=== PATIENT | female | born 1945 | race Caucasian/White ===

== ENCOUNTER 2016-06-14 07:17 | Observation (INO) ==
--- NOTE | 2016-06-14 07:41 | Emergency Department Note ---
Disposition Clinical Impression: Chest pain, Bronchitis Disposition: Admitted As Inpatient Condition: Fair Referrals: Carrie Cole, [employer] [Primary Care Provider] - Forms: ED Satisfaction Letter Time of Disposition: 08:52 (seth joel) Chest Pain HPI - General Chief Complaint: ED Chest Pain Stated Complaint: chest pain Time Seen by Provider: 06/14/16 07:30 Source: patient, EMS Mode of arrival: EMS Limitations: no limitations Vital Signs Reviewed: Yes Nursing Notes Reviewed: Yes - History of Present Illness HPI Narrative: Comes in complaining of midsternal chest pain which has also been having cough congestion with phlegm production over the past couple weeks denies any diarrhea melena hematochezia or hematemesis any numbness tinnitus recently pain or weight loss or any rash or lesions Pt complaint: chest pain Onset (ago): day(s) (5) Duration: intermittent Onset: during rest Pain Location: substernal, left chest Severity: moderate Severity scale (1-10): 5 Quality: aching Improves with: nothing Worsens with: exertion, inspiration, movement Context: recent illness Associated symptoms: Reports: dyspnea, cough. Denies: nausea, vomiting, diaphoresis, sense of impending doom, syncope, palpitations, fever, leg swelling Treatments prior to arrival chest pain: aspirin - Related Data Home Medications Medication Instructions Recorded Confirmed Albuterol Sulfate [Albuterol 180 mcg IH Q4HR PRN 06/22/15 06/14/16 Inhaler] Ascorbate Calcium [Vitamin C] 500 mg PO DAILY 06/22/15 06/14/16 Atenolol [Tenormin] 25 mg PO BID 06/22/15 06/14/16 Beclomethasone Diprop 80mcg [QVAR 80 mcg PO BID PRN 06/22/15 06/14/16 80 mcg] Calcium Carbonate/Vitamin D3 1 each PO DAILY 06/22/15 06/14/16 [Calcium 600 + Vit D Tablet] Cyclosporine [Restasis] 1 each OP HS 06/22/15 06/14/16 Ergocalciferol (VITAMIN D2) 50,000 unit PO WE 06/22/15 06/14/16 [Vitamin D2 (50,000 UNIT)] Fluticasone Propionate Nasal 50 mcg NS DAILY PRN 06/22/15 06/14/16 [Flonase] Furosemide [Lasix] 40 mg PO DAILY PRN 06/22/15 06/14/16 Hydrochlorothiazide 12.5 mg PO DAILY 06/22/15 06/14/16 Lysine HCl [l-Lysine] 500 mg PO DAILY 06/22/15 06/14/16 Montelukast [Singulair] 10 mg PO HS 06/22/15 06/14/16 Multivitamin [Multi-Day Vitamins] 1 each PO DAILY 06/22/15 06/14/16 [place]-3S/Dha/Epa/Fish Oil [Fish 1,000 mg PO DAILY 06/22/15 06/14/16 Oil 1,200 mg Softgel] Oxygen 2 l NS AD 06/22/15 06/14/16 Ropinirole [Requip] 1 mg PO HS 06/22/15 06/14/16 Simvastatin [Zocor] 20 mg PO HS 06/22/15 06/14/16 Vitamin E Acid Succinate [Vitamin 400 unit PO DAILY 06/22/15 06/14/16 E] Aspirin 81 mg PO DAILY 01/18/16 06/14/16 Duloxetine HCl [Cymbalta] 90 mg PO DAILY 01/18/16 06/14/16 Glimepiride [Amaryl] 2 mg PO 0800 01/18/16 06/14/16 Pregabalin [Lyrica] 75 mg PO TID 01/18/16 06/14/16 Tiotropium [place] [Spiriva 2 puff IH BID 01/18/16 06/14/16 Respimat] Omeprazole [PriLOSEC] 40 mg PO DAILY 06/14/16 06/14/16 Potassium Chloride [Klor-Con 10] 10 meq PO DAILY 06/14/16 06/14/16 Allergies Allergy/AdvReac Type Severity Reaction Status Date / Time gabapentin [From Neurontin] Allergy SWELLING Verified 06/22/15 11:21 naproxen [From Naprosyn] Allergy Hives Verified 06/22/15 11:21 NSAIDS (Non-Steroidal Allergy Hives Verified 01/24/15 13:43 Anti-Inflamma All systems ED: reviewed and negative except as stated. Constitutional: Denies: fever, chills, weakness Eyes: Denies: eye pain ENT ED: Reports: congestion. Denies: ear pain Cardiovascular: Reports: chest pain, dyspnea on exertion. Denies: palpitations Respiratory: Reports: cough, dyspnea, sputum production. Denies: wheezes Gastrointestinal: Denies: abdominal pain, nausea Genitourinary: Denies: urgency, dysuria Musculoskeletal: Denies: back pain Integumentary: Denies: rash Neurological: Denies: headache Psychiatric: Denies: anxiety Endocrine: Denies: fatigue Hematological/Lymphatic: Denies: easy bleeding Allergic/Immunologic: Denies: facial swelling Chest Pain PMH - Past Medical History Medical history: Reports: arthritis, COPD, diabetes, GERD, hyperlipidemia, hypertension, myocardial infarction Surgical history: Reports: angioplasty/stent, appendectomy, breast surgery, hysterectomy, CHALINO/BSO Psychiatric history: Reports: depression 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 - Social History Smoking Status: Former smoker Alcohol use: Reports: none Drug use: Reports: none Physical Exam - General Limitations: no limitations General appearance: alert, in no apparent distress, anxious - Head Head exam: atraumatic, normocephalic, normal inspection - Eye Eye exam: Present: normal appearance, PERRL, EOMI - ENT ENT exam: normal exam, normal oropharynx, mucous membranes moist, TM's normal bilaterally, normal external ear exam - Neck Neck exam: Present: normal inspection, full ROM, trachea midline - Chest Chest inspection: Present: normal inspection, symmetric chest wall rise - Respiratory Respiratory exam: Present: normal lung sounds bilaterally - Cardiovascular Cardiovascular exam: Present: regular rate, normal rhythm, normal heart sounds - Abdominal Exam Abdominal exam: Present: soft, Non-Tender, normal bowel sounds - Expanded Upper Extremity Exam Shoulder exam: Present: normal inspection, full ROM Arm exam: Present: normal inspection, full ROM Elbow exam: Present: normal inspection, full ROM Forearm/Wrist exam: Present: normal inspection, full ROM Hand exam: Present: normal inspection, full ROM Vascular exam: Normal: capillary refill, radial pulse - Expanded Lower Extremity Exam Hip/Pelvis exam: Present: normal inspection, full ROM Upper leg exam: Present: normal inspection, full ROM Knee exam: Present: normal inspection, full ROM Lower leg exam: Present: normal inspection, full ROM Ankle exam: Present: normal inspection, full ROM Foot/toe exam: Present: normal inspection, full ROM Neurovascular/Tendon exam: Present: normal capillary refill, normal fine/light touch. Absent: motor deficit, sensory deficit, tendon deficit Gait: observed and normal - Back Exam Back exam: Present: normal inspection, full ROM - Neurological Exam Neurological exam: Present: alert, oriented X3, CN II-XII intact - Psychiatric Psychiatric exam: Present: normal affect, normal mood - Skin Skin exam: Present: warm, dry, intact, normal color Course Course Narrative: Patient seen and examined laboratory data started patient states that the systolic at this time - Reevaluation(s) Reevaluation #1: Patient was explained the findings of her laboratory results and patient is agreeable for admission at this time Vital Signs Temperature 98.6 F 06/14/16 07:30 Pulse Rate 62 06/14/16 07:30 Respiratory Rate 18 06/14/16 07:30 Blood Pressure 137/63 06/14/16 07:30 O2 Sat by Pulse Oximetry 91 L 06/14/16 07:30 Temperature 98.6 F 06/14/16 07:30 Pulse Rate 63 06/14/16 08:11 Respiratory Rate 16 06/14/16 08:12 Blood Pressure 113/52 06/14/16 08:11 O2 Sat by Pulse Oximetry 93 L 06/14/16 08:12 Oxygen Delivery Oxygen Delivery Nasal Cannula Chest Pain - MDM Narrative Medical decision making narrative: Pneumonia - Differential Diagnosis Likely: stable angina, unstable angina pectoris, atypical chest pain, chest pain - Medical Records Medical records reviewed: Yes I reviewed the patient's medical records. - Lab Data Lab results reviewed: Yes I reviewed the patient's lab results. Result diagrams: 06/14/16 07:30 06/14/16 07:30 Lab Results 06/14/16 06/14/16 06/14/16 Range/Units 07:30 07:30 07:30 WBC 7.4 (4.3-11.1) K/mcL RBC 4.21 (3.82-4.97) M/mcL Hgb 13.5 (11.5-15.4) g/dL Hct 40.7 (35.3-44.9) % MCV 96.7 (83.0-100.0) fL MCH 32.1 (28.0-33.3) pg MCHC 33.2 (31.6-35.5) g/dL RDW 13.4 (11.5-14.5) % Plt Count 205 (140-400) K/mcL MPV 9.9 (9.4-12.4) fL Immature Gran % 0.1 (0-4) % Seg Neutrophils % 56.4 % Lymphocytes % 25.3 % Monocytes % 14.0 % Eosinophils % 3.7 % Basophils % 0.5 % Neutrophils # 4.1 (1.6-8.9) K/mcL Lymphocytes # 1.9 (0.6-4.6) K/mcL Monocytes # 1.0 (0.0-1.3) K/mcL Eosinophils # 0.3 (0.0-0.6) K/mcL Basophils # 0.0 (0.0-0.2) K/mcL PT 11.2 (9.4-12.1) Seconds INR 1.0 APTT 32.2 (26.0-36.0) Seconds Sodium 142 (136-145) mEq/L Potassium 3.6 (3.5-4.5) mEq/L Chloride 106 (98-109) mEq/L Carbon Dioxide 27 (19-29) mEq/L BUN 16 (7-20) mg/dL Creatinine 0.84 (0.57-1.11) mg/dL Est GFR ( Amer) > 60 (> 60) Est GFR (Non-Af Amer) > 60 (> 60) BUN/Creatinine Ratio 19 (6-26) Glucose 152 H (70-99) mg/dL Calculated Osmolality 298 (280-300) Calcium 9.3 (8.6-10.8) mg/dL Troponin I (0-0.03) ng/mL B-Natriuretic Peptide (0-100) pg/mL 06/14/16 06/14/16 Range/Units 07:30 07:30 WBC (4.3-11.1) K/mcL RBC (3.82-4.97) M/mcL Hgb (11.5-15.4) g/dL Hct (35.3-44.9) % MCV (83.0-100.0) fL MCH (28.0-33.3) pg MCHC (31.6-35.5) g/dL RDW (11.5-14.5) % Plt Count (140-400) K/mcL MPV (9.4-12.4) fL Immature Gran % (0-4) % Seg Neutrophils % % Lymphocytes % % Monocytes % % Eosinophils % % Basophils % % Neutrophils # (1.6-8.9) K/mcL Lymphocytes # (0.6-4.6) K/mcL Monocytes # (0.0-1.3) K/mcL Eosinophils # (0.0-0.6) K/mcL Basophils # (0.0-0.2) K/mcL PT (9.4-12.1) Seconds INR APTT (26.0-36.0) Seconds Sodium (136-145) mEq/L Potassium (3.5-4.5) mEq/L Chloride (98-109) mEq/L Carbon Dioxide (19-29) mEq/L BUN (7-20) mg/dL Creatinine (0.57-1.11) mg/dL Est GFR ( Amer) (> 60) Est GFR (Non-Af Amer) (> 60) BUN/Creatinine Ratio (6-26) Glucose (70-99) mg/dL Calculated Osmolality (280-300) Calcium (8.6-10.8) mg/dL Troponin I 0.01 (0-0.03) ng/mL B-Natriuretic Peptide 24 (0-100) pg/mL - Radiology Data Radiology results reviewed: Yes I reviewed the patient's radiology results. ITS Impressions Chest X-Ray 06/14/16 07:39 IMPRESSION: 1. Apparent blunting of the left costophrenic angle may be due to technique, however small left pleural effusion is not excluded. If clinically indicated, the lateral radiograph could be obtained to assess for pleural effusion. 2. Otherwise, unremarkable chest radiograph. D/ / Bertrand Bowens MD / Bertrand Bowens MD Interpreting Provider: Bertrand Bowens MD - EKG Data EKG attestation: Yes I reviewed and interpreted this EKG. EKG results narrative: Rhythm sinus elke Heart Rate 57 KS 148 QRS 137 QT 439 Axes 73 Heart Score - Score EKG: Normal Age: Greater than 65 Risk Factors: 1-2 risk factors Troponin: Less than normal limit Critical Care Time Critical Care Time: No
[2016-06-14] MEDS ORDERED: Aspirin 81 MG TAB.CHEW PO ONE (07:43)
[2016-06-14 07:44] LABS: Basophils % 0.5 %; Eosinophils # 0.3 K/mcL (0.0-0.6); Eosinophils % 3.7 %; Hematocrit 40.7 % (35.3-44.9); Hemoglobin 13.5 g/dL (11.5-15.4); Immature Granulocytes % 0.1 % (0-4); Lymphocytes # 1.9 K/mcL (0.6-4.6); Lymphocytes % 25.3 %; Mean Corpuscular HGB Conc 33.2 g/dL (31.6-35.5); Mean Corpuscular Hemoglobin 32.1 pg (28.0-33.3); Mean Corpuscular Volume 96.7 fL (83.0-100.0); Mean Platelet Volume 9.9 fL (9.4-12.4); Neutrophils # 4.1 K/mcL (1.6-8.9); Platelet Count 205 K/mcL (140-400); Red Blood Count 4.21 M/mcL (3.82-4.97); Red Cell Distribution Width 13.4 % (11.5-14.5); Segmented Neutrophils % 56.4 %
[2016-06-14 07:49] LABS: Prothrombin Time 11.2 Seconds (9.4-12.1)
[2016-06-14 07:51] LABS: Activated Partial Thrombo Time 32.2 Seconds (26.0-36.0)
[2016-06-14] MEDS ORDERED: Ipratropium/Albuterol Neb 3 ML IH ONE ×2 (07:58→10:06)
[2016-06-14 08:21] LABS: BUN/Creatinine Ratio 19 (6-26); Blood Urea Nitrogen 16 mg/dL (7-20); Calcium 9.3 mg/dL (8.6-10.8); Carbon Dioxide 27 mEq/L (19-29); Chloride 106 mEq/L (98-109); Glucose 152 mg/dL (70-99); Osmolality,Calculated 298 (280-300); Potassium 3.6 mEq/L (3.5-4.5); Sodium 142 mEq/L (136-145); eGFR For African Americans > 60 (> 60); eGFR For Non-African Americans > 60 (> 60)
[2016-06-14] MEDS ORDERED: Levofloxacin 500 MG/100 ML 500 MG/100 ML BAG IVPB SCH ×2 (09:00→10:06)
[2016-06-14] MEDS ORDERED: *HR* Dextrose 50 % in Water (Syg) 50 ML SYRINGE IVP PRN (10:06)
[2016-06-14] MEDS ORDERED: NON-FORMULARY MEDICATION 1 EACH EACH (Tiotropium Bromide [Spiriva Respimat] 2 PUFF) IH SCH (10:06)
[2016-06-14] MEDS ORDERED: Furosemide 40 MG TABLET PO PRN (10:06)
[2016-06-14] MEDS ORDERED: Fluticasone Propionate Nasal 50 MCG/SPRAY BOTTLE NS PRN (10:06)
[2016-06-14] MEDS ORDERED: Naloxone 0.4 MG/ML INJ IVP PRN (10:06)
[2016-06-14] MEDS ORDERED: Dextrose Gel 15 GM PO PRN ×2 (10:06)
[2016-06-14] MEDS ORDERED: D5% in Water 1,000 ML IV PRN (10:06)
[2016-06-14] MEDS ORDERED: Ondansetron ODT 4 MG TAB.RAPDIS SL PRN (10:06)
[2016-06-14] MEDS: 0.9 % Sodium Chloride 1,000 ML IVC SCH (13:21)
[2016-06-14] MEDS: Aspirin 81 MG TAB.CHEW PO SCH (13:27)
[2016-06-14] MEDS: PredniSONE 20 MG TABLET PO SCH (13:35)
[2016-06-14] MEDS: Ascorbic Acid 500 MG TABLET PO SCH (13:37)
[2016-06-14] MEDS: OMEGA PO SCH (13:38)
[2016-06-14] MEDS: FISH OIL PO SCH (13:38)
[2016-06-14] MEDS: Insulin LISPRO 300 UNITS/3 ML VIAL SQ SCH ×2 (13:43→16:39)
[2016-06-14] MEDS: Multivit/Ca/Min/Fe/FA 1 TAB TABLET PO SCH (13:47)
[2016-06-14] MEDS: Pregabalin 25 MG CAPSULE PO SCH ×3 (13:47→20:40)
[2016-06-14] MEDS: LYSINE 500 MG PO SCH (14:13)
[2016-06-14] MEDS ORDERED: Nitroglycerin 0.4 MG TAB.SUBL SL PRN (19:04)
[2016-06-14] MEDS ORDERED: RESTASIS OPH OP SCH (21:00)
[2016-06-15] MEDS: 0.9 % Sodium Chloride 1,000 ML IVC SCH (01:34)
[2016-06-15 06:11] LABS: Basophils % 0.2 %; Hematocrit 39.7 % (35.3-44.9); Immature Granulocytes % 0.5 % (0-4); Lymphocytes % 17.2 %; Mean Corpuscular HGB Conc 32.7 g/dL (31.6-35.5); Mean Corpuscular Hemoglobin 31.6 pg (28.0-33.3); Mean Corpuscular Volume 96.4 fL (83.0-100.0); Mean Platelet Volume 9.9 fL (9.4-12.4); Monocytes # 0.4 K/mcL (0.0-1.3); Neutrophils # 4.2 K/mcL (1.6-8.9); Platelet Count 202 K/mcL (140-400); Red Blood Count 4.12 M/mcL (3.82-4.97); Red Cell Distribution Width 13.1 % (11.5-14.5); Segmented Neutrophils % 75.1 %
[2016-06-15 06:15] LABS: INR 1.1; Prothrombin Time 11.7 Seconds (9.4-12.1)
[2016-06-15 06:18] LABS: Activated Partial Thrombo Time 30.8 Seconds (26.0-36.0)
[2016-06-15 06:25] LABS: BUN/Creatinine Ratio 12 (6-26); Blood Urea Nitrogen 9 mg/dL (7-20); Calcium 9.3 mg/dL (8.6-10.8); Carbon Dioxide 27 mEq/L (19-29); Chloride 106 mEq/L (98-109); Glucose 202 mg/dL (70-99); Osmolality,Calculated 300 (280-300); Sodium 143 mEq/L (136-145); eGFR For African Americans > 60 (> 60); eGFR For Non-African Americans > 60 (> 60)
[2016-06-15 07:02] VITALS: BP 151/71
[2016-06-15] MEDS: Insulin LISPRO 300 UNITS/3 ML VIAL SQ SCH (07:45)
[2016-06-15] MEDS ORDERED: *HR* Glimepiride 2 MG TABLET PO SCH (08:00)
[2016-06-15] MEDS ORDERED: Levofloxacin 500 MG/100 ML 500 MG/100 ML BAG IVPB SCH (09:00)
[2016-06-15] MEDS ORDERED: Cholecalciferol (D-3) 1,000 UNIT TABLET PO SCH (09:00)
[2016-06-15] MEDS ORDERED: Tiotropium 18 MCG inhalation IH SCH (10:00)
--- NOTE | 2016-06-15 10:13 | Internal Med History&Physical ---
Date of Encounter: 06/15/16 Time of Encounter: 09:35 Assessment and Plan (1) Bronchitis Current visit: Yes Status: Acute She was started on Levaquin in emergency room. I will not continue this since she does not appear to have pneumonia and it appears her bronchitis is subacute. She primarily has residual cough. Further workup will be done as needed. (2) Chest pain Current visit: Yes Status: Acute Repeat cardiac enzymes were ordered in emergency room. Further workup will be done as needed. Qualifiers: Chest pain type: unspecified Qualified Code(s): R07.9 - Chest pain, unspecified Internal Medicine - H&P: HPI Chief complaint: Cough and dyspnea,chest pain Admitted From: Home Plans for Post Hospital Care: Home History of present illness: Ms. Barbosa is a 70 year old female who came to emergency room stating she increased dyspnea and chest discomfort onset approximately 0600. When it did not resolve she came to emergency room. She was evaluated and felt to have possible bronchitis. She was admitted to [facility] floor for ongoing care needs. She states she was diagnosed with bronchitis approximately 2 weeks earlier and was given antibiotics, prednisone, cough medication and pro-air. She felt initially better but then seemed to be worsening over the past few days. Her respiratory history is significant for having smoked from age [age] a total of approximately 20 years. She smoked up to 1 pack per day. She has a diagnosis of COPD and wears oxygen 24/7 at 2 L/m at home. She has a diagnosis of CHAUNCEY and wear CPAP. She states she feels better at this time. Her cough has had little productivity. Her chest pain has resolved. Past Med Surg Social Fam HX - Past Medical History Medical history: arthritis, COPD, diabetes, GERD, hyperlipidemia, hypertension, myocardial infarction Psychiatric history: depression - Past Surgical History Surgical History: angioplasty/stent, appendectomy, breast surgery, hysterectomy , CHALINO/BSO - Social History Smoking Status: Former smoker Smokeless Tobacco Status: No Alcohol use: none Drug use: none Internal Medicine - H&P: Meds Albuterol Sulfate [Albuterol Inhaler] 180 mcg IH Q4HR PRN 06/22/15 [History] Ascorbate Calcium [Vitamin C] 500 mg PO DAILY 06/22/15 [History] Atenolol [Tenormin] 25 mg PO BID 06/22/15 [History] Beclomethasone Diprop 80mcg [QVAR 80 mcg] 80 mcg PO BID PRN 06/22/15 [History] Calcium Carbonate/Vitamin D3 [Calcium 600 + Vit D Tablet] 1 each PO DAILY [History] Cyclosporine [Restasis] 1 each OP HS 06/22/15 [History] Ergocalciferol (VITAMIN D2) [Vitamin D2 (50,000 UNIT)] 50,000 unit PO WE [History] Fluticasone Propionate Nasal [Flonase] 50 mcg NS DAILY PRN 06/22/15 [History] Furosemide [Lasix] 40 mg PO DAILY PRN 06/22/15 [History] Hydrochlorothiazide 12.5 mg PO DAILY 06/22/15 [History] Lysine HCl [l-Lysine] 500 mg PO DAILY 06/22/15 [History] Montelukast [Singulair] 10 mg PO HS 06/22/15 [History] Multivitamin [Multi-Day Vitamins] 1 each PO DAILY 06/22/15 [History] [place]-3S/Dha/Epa/Fish Oil [Fish Oil 1,200 mg Softgel] 1,000 mg PO DAILY [History] Oxygen 2 l NS AD 06/22/15 [History] Ropinirole [Requip] 1 mg PO HS 06/22/15 [History] Simvastatin [Zocor] 20 mg PO HS 06/22/15 [History] Vitamin E Acid Succinate [Vitamin E] 400 unit PO DAILY 06/22/15 [History] Aspirin 81 mg PO DAILY 01/18/16 [History] Duloxetine HCl [Cymbalta] 90 mg PO DAILY 01/18/16 [History] Glimepiride [Amaryl] 2 mg PO 0800 01/18/16 [History] Pregabalin [Lyrica] 75 mg PO TID 01/18/16 [History] Tiotropium [place] [Spiriva Respimat] 2 puff IH BID 01/18/16 [History] Omeprazole [PriLOSEC] 40 mg PO DAILY 06/14/16 [History] Potassium Chloride [Klor-Con 10] 10 meq PO DAILY 06/14/16 [History] Allergies gabapentin [From Neurontin] Allergy (Verified 06/22/15 11:21) SWELLING naproxen [From Naprosyn] Allergy (Verified 06/22/15 11:21) Hives NSAIDS (Non-Steroidal Anti-Inflamma Allergy (Verified 01/24/15 13:43) Hives All Systems PM: A 10-system review of systems was performed and is negative for pertinent findings except as documented above in the HPI. Review of systems: Gen.: She states her weight has been stable past 2 months Cardiovascular: She has history of hypertension. She claims she had an [place] approximately 2004. She has ASPVD with right leg stent placed several years ago. She denies heart failure DVT or pulmonary embolus. She has not had prolonged period of immobility. Respiratory: As per history of present illness GI: She has GERD but denies disorders of her liver gallbladder or exocrine pancreas : She has had UTIs in the past. She denies other kidney or bladder disorders Neurologic: She has DPN and RLS. She denies large distribution strokes or seizures. Endocrine: She was diagnosed with DM 2 approximately 6 months ago. She has hyperlipidemia but no known thyroid disease Hematology/oncology: She denies blood disorders cancers or anemia Psychiatric: She has depression but denies anxiety or other mental health issues [place] skeletal: She has chronic low back pain and has a stimulator in place. She denies gout or other bone joint or muscle disorders. - Constitutional Vitals: Temp Pulse Resp BP Pulse Ox 97.6 F 62 18 151/71 95 06/15/16 07:00 06/15/16 07:00 06/15/16 07:00 06/15/16 07:00 06/15/16 07:00 Exam: Gen.: She is a well-developed well-nourished female appears in no severe distress at present time. HEENT: Head is atraumatic and normocephalic. Eyes: EOMI. There is no scleral icterus. Mouth: Mucosa is moist. Neck: Supple and nontender. There is no thyromegaly or adenopathy noted. Heart: Regular without murmurs gallops or ectopics. Lungs: No wheezes or crackles are heard. Chest: She is nontender in her chest wall to palpation. Abdomen: Soft and nontender. No masses or guarding are noted. Extremities: There is no cyanosis edema or clubbing noted. Dorsalis pedis and posttibial pulses are trace to 1+ palpable bilaterally. Neurologic: Mental status: She is talkative and a good historian. Cranial nerves: Smile is symmetric. Forehead wrinkles bilaterally. Tongue protrudes midline. EOMI. Motor: There is no pronator drift. Cerebellar: Finger to nose is intact bilaterally. Skin: Warm and dry Internal Med - H&P Results - Labs CBC & Chem 7: 06/15/16 05:45 06/15/16 05:45 Labs: Short CBC 06/15/16 Range/Units 05:45 WBC 5.6 (4.3-11.1) K/mcL Hgb 13.0 (11.5-15.4) g/dL Hct 39.7 (35.3-44.9) % Plt Count 202 (140-400) K/mcL Neutrophils # 4.2 (1.6-8.9) K/mcL BMP 06/15/16 05:45 Sodium 143 Potassium 4.0 Chloride 106 Carbon Dioxide 27 BUN 9 Creatinine 0.77 Glucose 202 H Calcium 9.3 Cardiac Enzymes 06/14/16 06/14/16 06/15/16 Range/Units 13:07 18:55 01:25 Troponin I 0.00 0.00 0.01 (0-0.03) ng/mL
--- NOTE | 2016-06-15 10:32 | Discharge Summary ---
Date of Encounter: 06/15/16 Time of Encounter: 09:35 - Discharge Diagnosis (1) Bronchitis Priority: Primary Status: Acute (2) Chest pain Priority: Secondary Status: Acute Qualifiers: Chest pain type: unspecified Qualified Code(s): R07.9 - Chest pain, unspecified - Discharge Medications Home Medications: Albuterol Sulfate [Albuterol Inhaler] 180 mcg IH Q4HR PRN 06/22/15 [History] Ascorbate Calcium [Vitamin C] 500 mg PO DAILY 06/22/15 [History] Atenolol [Tenormin] 25 mg PO BID 06/22/15 [History] Beclomethasone Diprop 80mcg [QVAR 80 mcg] 80 mcg PO BID PRN 06/22/15 [History] Calcium Carbonate/Vitamin D3 [Calcium 600 + Vit D Tablet] 1 each PO DAILY [History] Cyclosporine [Restasis] 1 each OP HS 06/22/15 [History] Ergocalciferol (VITAMIN D2) [Vitamin D2 (50,000 UNIT)] 50,000 unit PO WE [History] Fluticasone Propionate Nasal [Flonase] 50 mcg NS DAILY PRN 06/22/15 [History] Furosemide [Lasix] 40 mg PO DAILY PRN 06/22/15 [History] Hydrochlorothiazide 12.5 mg PO DAILY 06/22/15 [History] Lysine HCl [l-Lysine] 500 mg PO DAILY 06/22/15 [History] Montelukast [Singulair] 10 mg PO HS 06/22/15 [History] Multivitamin [Multi-Day Vitamins] 1 each PO DAILY 06/22/15 [History] [place]-3S/Dha/Epa/Fish Oil [Fish Oil 1,200 mg Softgel] 1,000 mg PO DAILY [History] Oxygen 2 l NS AD 06/22/15 [History] Ropinirole [Requip] 1 mg PO HS 06/22/15 [History] Simvastatin [Zocor] 20 mg PO HS 06/22/15 [History] Vitamin E Acid Succinate [Vitamin E] 400 unit PO DAILY 06/22/15 [History] Aspirin 81 mg PO DAILY 01/18/16 [History] Duloxetine HCl [Cymbalta] 90 mg PO DAILY 01/18/16 [History] Glimepiride [Amaryl] 2 mg PO 0800 01/18/16 [History] Pregabalin [Lyrica] 75 mg PO TID 01/18/16 [History] Tiotropium [place] [Spiriva Respimat] 2 puff IH BID 01/18/16 [History] Omeprazole [PriLOSEC] 40 mg PO DAILY 06/14/16 [History] Potassium Chloride [Klor-Con 10] 10 meq PO DAILY 06/14/16 [History] Allergies/Adverse Reactions: Allergies gabapentin [From Neurontin] Allergy (Verified 06/22/15 11:21) SWELLING naproxen [From Naprosyn] Allergy (Verified 06/22/15 11:21) Hives NSAIDS (Non-Steroidal Anti-Inflamma Allergy (Verified 01/24/15 13:43) Hives Date of admission: 06/14/16 09:11 Primary care physician: Carrie Cole CNP - Patient Status Disposition: Home, Self-Care Condition: Fair Overall status at discharge: patient is progressing back to baseline - Discharge Instructions Follow Up With: Carrie Cole CNP [Primary Care Provider] - 1 week - Diet and Activity Activity: resume usual activities as tolerated, wear oxygen at all times Diet: advance to your usual diet Hospital course: Ms. Barbosa is a 70 year old female who came to emergency room stating she increased dyspnea and chest discomfort onset approximately 0600. When it did not resolve she came to emergency room. She was evaluated and felt to have possible bronchitis. She was admitted to [facility] floor for ongoing care needs. Initial orders were written by the emergency room physician. I saw her on the morning of June 15 and performed a history physical and discharge. Repeat cardiac enzymes showed no evidence of myocardial damage. When I saw her I did not think the chest pain was likely to be of myocardial ischemic origin. Etiology of the pain was not determined with certainty. Her coughing lessened and she felt better overall when I saw her. She wished to be discharged home which I felt was reasonable. She will follow with Carrie Cole CNP within 1 week. I will not give her further antibiotics. She can use OTC antitussives medication. - Time Spent with Patient Total time spent providing and/or coordinating discharge services: - Constitutional Vitals: Temp Pulse Resp BP Pulse Ox 97.6 F 62 18 151/71 95 06/15/16 07:00 06/15/16 07:00 06/15/16 07:00 06/15/16 07:00 06/15/16 07:00
[2016-06-15] MEDS: Pregabalin 25 MG CAPSULE PO SCH (11:32)
[2016-06-15] MEDS: Ascorbic Acid 500 MG TABLET PO SCH (11:33)
[2016-06-15] MEDS: Aspirin 81 MG TAB.CHEW PO SCH (11:34)
[2016-06-15] MEDS: OMEGA PO SCH (11:36)
[2016-06-15] MEDS: FISH OIL PO SCH (11:36)
[2016-06-15] MEDS: PredniSONE 20 MG TABLET PO SCH (11:37)
[2016-06-15] MEDS: LYSINE 500 MG PO SCH (11:37)
[2016-06-15] MEDS: Multivit/Ca/Min/Fe/FA 1 TAB TABLET PO SCH (11:37)
--- NOTE | 2016-06-15 14:48 | Electrocardiograph Report ---
[facility] Test Date: 2016-06-14 Pat Name: Caryn Barbosa Department: [id number] Room: 16 Gender: F [employer]: [id number] : [id number] Requested By: Davin You Order Number: [id number] Reading MD: Keegan Stack MD Measurements Intervals [place] Rate: 57 P: 60 TN: 148 QRS: 73 QRSD: 137 T: 47 QT: 439 QTc: 432 Interpretive Statements SINUS BRADYCARDIA INFERIOR MYOCARDIAL INFARCTION, PROBABLY OLD Electronically Signed On 06-15-16 14:47:38 EST by Keegan Stack MD
== END 2016-06-15 12:10 | disposition home or self-care (01) ==
LOC: INPPIK 07:17 → EMEROOPIK 07:17 → INPPIK 10:10
PROVIDERS: ADMIT Internal Medicine; ATTEND Internal Medicine

== ENCOUNTER 2017-09-23 08:40 | Observation (INO) ==
[~2017-09-23 08:40] MED LIST: Ondansetron 4 MG/2 ML VIAL IVP PRN
--- NOTE | 2017-09-23 09:11 | Emergency Department Note ---
Disposition Clinical Impression: Acute exacerbation of chronic obstructive airways disease, Bronchitis, Chest pain Disposition: Admitted As Inpatient Condition: Good Referrals: Carrie Cole, [employer] CR[employer] [Primary Care Provider] - Forms: ED Satisfaction Letter Time of Disposition: 12:40 ([facility] [place] OBS[facility]) SOB HPI - General Chief Complaint: ED Shortness of Breath/Dyspnea Stated Complaint: thinks she has pneumonia Time Seen by Provider: 09/23/17 08:45 Source: patient Mode of arrival: ambulatory Limitations: no limitations Nursing Notes Reviewed: Yes Vital Signs Reviewed: Yes - History of Present Illness Shortness of breath for the past 4 days cough congestion runny nose no fevers no chills dyspnea with activity pain no swelling no edema denies any diarrhea melena hematochezia or hematemesis has been brought her in because she is unable to ambulate very far without any shortness of breath sats were noted to be 85% and with ambulation without oxygen she normally is on 2 L desats with activity Pt Subjective Complaint: shortness of breath, cough Onset (ago): day(s) (4) Severity: severe Consistency/Duration: gradually worsening Improves with: nothing Worsens with: exertion, movement, coughing, inspiration Known history of: COPD Associated symptoms: Reports: chest pain, pain with inspiration, cough, wheezing , sputum production. Denies: fever, orthopnea, lower extremity pain, polyuria, polydipsia, parasthesias, palpitations, hemoptysis, diaphoresis, nausea/vomiting , syncope, abdominal pain, rash, sense of impending doom Treatment prior to arrival: oxygen, bronchodilator Cough present: Yes Cough Description: Involuntary, Productive, Strong, Bronchospastic, Rattling Cough Frequency: Intermittent Sputum production: Yes Sputum Amount: Small Sputum Color: Yellow - Related Data Home Medications Medication Instructions Recorded Confirmed Albuterol Sulfate [Albuterol 2 puff IH Q4HR PRN 06/22/15 04/17/17 Inhaler] Ascorbate Calcium [Vitamin C] 500 mg PO DAILY 06/22/15 04/17/17 Beclomethasone Diprop 80mcg [QVAR 80 mcg PO BID PRN 06/22/15 04/17/17 80 mcg] Cyclosporine [Restasis] 1 each OP HS 06/22/15 04/17/17 Ergocalciferol (VITAMIN D2) 50,000 unit PO WE 06/22/15 04/17/17 [Vitamin D2 (50,000 UNIT)] Fluticasone Propionate Nasal 1 spr NS DAILY PRN 06/22/15 04/17/17 [Flonase] Furosemide [Lasix] 40 mg PO DAILY PRN 06/22/15 04/17/17 Montelukast [Singulair] 10 mg PO HS 06/22/15 04/17/17 Multivitamin [Multi-Day Vitamins] 1 each PO DAILY 06/22/15 04/17/17 [place]-3S/Dha/Epa/Fish Oil [Fish 1,000 mg PO DAILY 06/22/15 04/17/17 Oil 1,200 mg Softgel] Oxygen 2 l NS AD 06/22/15 04/17/17 Simvastatin [Zocor] 20 mg PO HS 06/22/15 04/17/17 Vitamin E Acid Succinate [Vitamin 400 unit PO DAILY 06/22/15 04/17/17 E] hydroCHLOROthiazide 12.5 mg PO DAILY 06/22/15 04/17/17 [Hydrochlorothiazide] rOPINIRole [Requip] 1 mg PO HS 06/22/15 04/17/17 Aspirin 81 mg PO DAILY 01/18/16 04/17/17 Duloxetine HCl [Cymbalta] 60 mg PO DAILY 01/18/16 04/17/17 Glimepiride [Amaryl] 2 mg PO 0800 01/18/16 04/17/17 Pregabalin [Lyrica] 75 mg PO BID 01/18/16 04/17/17 Tiotropium [place] [Spiriva 2 puff IH BID 01/18/16 04/17/17 Respimat] Omeprazole [PriLOSEC] 40 mg PO DAILY 06/14/16 04/17/17 Potassium Chloride [Klor-Con 10] 10 meq PO DAILY 06/14/16 04/17/17 Metoprolol [Lopressor] 25 mg PO BID 02/09/17 04/17/17 DULoxetine [Cymbalta] 30 mg PO DAILY 04/17/17 04/17/17 Losartan [Cozaar] 25 mg PO DAILY 04/17/17 04/17/17 Previous Rx's Medication Instructions Recorded Oxycodone HCl/Acetaminophen 1 each PO Q6HR PRN #12 tablet 04/17/17 [Percocet 5-325 mg Tablet] Allergies Allergy/AdvReac Type Severity Reaction Status Date / Time gabapentin [From Neurontin] Allergy SWELLING Verified 04/17/17 12:00 naproxen [From Naprosyn] Allergy Hives Verified 04/17/17 12:00 NSAIDS (Non-Steroidal Allergy Hives Verified 04/17/17 12:00 Anti-Inflamma All systems ED: reviewed and negative except as stated. Review of Systems: As Per HPI Constitutional: Denies: fever, chills, weakness Eyes: Denies: eye pain, eye discharge ENT ED: Denies: ear pain, throat pain, dental pain Cardiovascular: Reports: chest pain, dyspnea on exertion. Denies: palpitations Respiratory: Reports: cough, dyspnea, wheezes, sputum production Gastrointestinal: Denies: abdominal pain, nausea, vomiting Genitourinary: Denies: urgency, dysuria, frequency Musculoskeletal: Denies: back pain, neck pain Integumentary: Denies: rash, abrasion Neurological: Denies: headache, weakness Psychiatric: Denies: anxiety, depression Endocrine: Denies: fatigue Hematological/Lymphatic: Denies: easy bleeding Allergic/Immunologic: Denies: facial swelling Past Medical History - Past Medical History Attestation: Yes The following information was validated with the patient. Source: patient, old records reviewed, nursing notes reviewed Medical history: Reports: arthritis, asthma, COPD, coronary artery disease, diabetes, GERD, hyperlipidemia, hypertension, myocardial infarction, peripheral artery disease Surgical history: Reports: angioplasty/stent, appendectomy, breast surgery, hysterectomy, CHALINO/BSO Psychiatric history: Reports: depression NEGATIVE SPOTTER history: Reports: spontaneous - Social History Smoking Status: Former smoker Smokeless Tobacco Status: No Alcohol use: Reports: none Drug use: Reports: none Physical Exam - General Limitations: no limitations General appearance: alert, in no apparent distress, anxious - Head Head exam: atraumatic, normocephalic, normal inspection - Eye Eye exam: Present: normal appearance, PERRL, EOMI - ENT ENT exam: normal exam, normal oropharynx, mucous membranes moist, TM's normal bilaterally, normal external ear exam - Neck Neck exam: Present: normal inspection, full ROM, trachea midline - Chest Chest inspection: Present: normal inspection, symmetric chest wall rise - Respiratory Respiratory exam: Present: wheezes, prolonged expiratory phase, other (rhonci) - Cardiovascular Cardiovascular exam: Present: regular rate, normal rhythm, normal heart sounds - Abdominal Exam Abdominal exam: Present: soft, Non-Tender, normal bowel sounds. Absent: mass, pulsatile mass - Extremities Exam Extremities exam: Present: normal inspection, full ROM, normal capillary refill. Absent: pedal edema, joint swelling, calf tenderness - Expanded Lower Extremity Exam Neurovascular/Tendon exam: Present: normal capillary refill, normal fine/light touch Gait: observed and normal - Back Exam Back exam: Present: normal inspection, full ROM. Absent: muscle spasm - Neurological Exam Neurological exam: Present: alert, oriented X3, CN II-XII intact, normal gait - Psychiatric Psychiatric exam: Present: normal affect, normal mood - Skin Skin exam: Present: warm, dry, intact, normal color Course Course Narrative: Patient was seen and examined patient was given multiple aerosols patient still having wet moist harsh cough despite the x-ray same process as result patient was given antibiotics I spoke with Dr. You for admission because the patient is desaturating with episodes of coughing and dyspneic with any type of activity Vital Signs Temperature 97.9 F 09/23/17 08:42 Pulse Rate 71 09/23/17 08:42 Respiratory Rate 18 09/23/17 08:42 Blood Pressure 150/83 09/23/17 08:42 O2 Sat by Pulse Oximetry 92 09/23/17 08:42 Temperature 97.9 F 09/23/17 08:42 Pulse Rate 62 09/23/17 10:55 Respiratory Rate 18 09/23/17 10:55 Blood Pressure 160/75 09/23/17 10:55 O2 Sat by Pulse Oximetry 94 09/23/17 10:55 Oxygen Delivery Oxygen Delivery Nasal Cannula Shortness of Breath/Dyspnea - Differential Diagnosis Likely: acute exacerbation of chronic obstructive airways disease - Medical Records Medical records reviewed: Yes I reviewed the patient's medical records. - Lab Data Lab results reviewed: Yes I reviewed the patient's lab results. Result diagrams: 09/23/17 09:20 09/23/17 09:20 Lab Results 09/23/17 09/23/17 09/23/17 Range/Units 09:20 09:20 09:20 WBC 4.2 L (4.3-11.1) K/mcL RBC 4.02 (3.82-4.97) M/mcL Hgb 12.7 (11.5-15.4) g/dL Hct 39.5 (35.3-44.9) % MCV 98.3 (83.0-100.0) fL MCH 31.6 (28.0-33.3) pg MCHC 32.2 (31.6-35.5) g/dL RDW 12.3 (11.5-14.5) % Plt Count 143 (140-400) K/mcL MPV 9.4 (9.4-12.4) fL Immature Gran % 0.0 (0-4) % Seg Neutrophils % 57.4 % Lymphocytes % 23.6 % Monocytes % 15.2 % Eosinophils % 3.6 % Basophils % 0.2 % Neutrophils # 2.4 (1.6-8.9) K/mcL Lymphocytes # 1.0 (0.6-4.6) K/mcL Monocytes # 0.6 (0.0-1.3) K/mcL Eosinophils # 0.2 (0.0-0.6) K/mcL Basophils # 0.0 (0.0-0.2) K/mcL PT 10.9 (9.4-12.1) Seconds INR 1.0 APTT 31.0 (26.0-36.0) Seconds Sodium (136-145) mEq/L Potassium (3.5-5.1) mEq/L Chloride (98-107) mEq/L Carbon Dioxide (23-29) mEq/L BUN (8-23) mg/dL Creatinine (0.60-1.20) mg/dL Est GFR ( Amer) (> 60) Est GFR (Non-Af Amer) (> 60) BUN/Creatinine Ratio (6-26) Glucose (70-105) mg/dL Calculated Osmolality (280-300) Lactic Acid 1.0 (0.5-2.2) mmol/L Calcium (8.6-10.3) mg/dL Total Bilirubin (0.3-1.0) mg/dL AST (13-39) Units/L ALT (7-52) Units/L Alkaline Phosphatase (34-104) Units/L Serum Total Protein (6.4-8.9) g/dL Albumin (3.5-5.7) g/dL Globulin (2.4-3.5) g/dL Albumin/Globulin Ratio (1.1-2.2) Urine Color (Yellow) Urine Clarity (Clear) Urine pH (5.0-8.0) pH Units Ur Specific [place] (1.010-1.025) Urine Protein (Neg-Trace) mg/dL Urine Glucose (UA) (Normal) mg/dL Urine Ketones (Negative) mg/dL Urine Blood (Negative) Urine Nitrite (Negative) Urine Bilirubin (Negative) Urine Urobilinogen (Normal) mg/dL Ur Leukocyte Esterase (Negative) Urine Microscopic WBC (0-3) per hpf Ur Squamous Epith Cells (None-Few) per lpf Urine Mucus (Few) Ur Culture Indicated? (NO) 09/23/17 09/23/17 Range/Units 09:20 09:30 WBC (4.3-11.1) K/mcL RBC (3.82-4.97) M/mcL Hgb (11.5-15.4) g/dL Hct (35.3-44.9) % MCV (83.0-100.0) fL MCH (28.0-33.3) pg MCHC (31.6-35.5) g/dL RDW (11.5-14.5) % Plt Count (140-400) K/mcL MPV (9.4-12.4) fL Immature Gran % (0-4) % Seg Neutrophils % % Lymphocytes % % Monocytes % % Eosinophils % % Basophils % % Neutrophils # (1.6-8.9) K/mcL Lymphocytes # (0.6-4.6) K/mcL Monocytes # (0.0-1.3) K/mcL Eosinophils # (0.0-0.6) K/mcL Basophils # (0.0-0.2) K/mcL PT (9.4-12.1) Seconds INR APTT (26.0-36.0) Seconds Sodium 142 (136-145) mEq/L Potassium 3.3 L (3.5-5.1) mEq/L Chloride 106 (98-107) mEq/L Carbon Dioxide 31 H (23-29) mEq/L BUN 13 (8-23) mg/dL Creatinine 0.76 (0.60-1.20) mg/dL Est GFR ( Amer) > 60 (> 60) Est GFR (Non-Af Amer) > 60 (> 60) BUN/Creatinine Ratio 17 (6-26) Glucose 107 H (70-105) mg/dL Calculated Osmolality 295 (280-300) Lactic Acid (0.5-2.2) mmol/L Calcium 8.7 (8.6-10.3) mg/dL Total Bilirubin 0.3 (0.3-1.0) mg/dL AST 21 (13-39) Units/L ALT 19 (7-52) Units/L Alkaline Phosphatase 77 (34-104) Units/L Serum Total Protein 6.0 L (6.4-8.9) g/dL Albumin 3.7 (3.5-5.7) g/dL Globulin 2.3 L (2.4-3.5) g/dL Albumin/Globulin Ratio 1.6 (1.1-2.2) Urine Color Yellow (Yellow) Urine Clarity Clear (Clear) Urine pH 5.5 (5.0-8.0) pH Units Ur Specific [place] >= 1.030 H (1.010-1.025) Urine Protein 100 H (Neg-Trace) mg/dL Urine Glucose (UA) Normal (Normal) mg/dL Urine Ketones 15 H (Negative) mg/dL Urine Blood Negative (Negative) Urine Nitrite Negative (Negative) Urine Bilirubin Negative (Negative) Urine Urobilinogen Normal (Normal) mg/dL Ur Leukocyte Esterase Negative (Negative) Urine Microscopic WBC 5-15 H (0-3) per hpf Ur Squamous Epith Cells Moderate H (None-Few) per lpf Urine Mucus Moderate H (Few) Ur Culture Indicated? NO (NO) - Radiology Data Radiology results reviewed: Yes I reviewed the patient's radiology results. ITS Impressions Chest X-Ray 09/23/17 09:05 IMPRESSION: No acute cardiopulmonary disease. D/ / Davin Brady MD / Davin Brady MD Interpreting Provider: Davin Brady MD Critical Care Time Critical Care Time: No
[2017-09-23] MEDS ORDERED: Ipratropium/Albuterol Neb 3 ML ONE (09:12)
[2017-09-23 09:33] LABS: Basophils % 0.2 %; Eosinophils # 0.2 K/mcL (0.0-0.6); Eosinophils % 3.6 %; Hematocrit 39.5 % (35.3-44.9); Hemoglobin 12.7 g/dL (11.5-15.4); Lymphocytes % 23.6 %; Mean Corpuscular HGB Conc 32.2 g/dL (31.6-35.5); Mean Corpuscular Hemoglobin 31.6 pg (28.0-33.3); Mean Corpuscular Volume 98.3 fL (83.0-100.0); Mean Platelet Volume 9.4 fL (9.4-12.4); Monocytes # 0.6 K/mcL (0.0-1.3); Monocytes % 15.2 %; Neutrophils # 2.4 K/mcL (1.6-8.9); Platelet Count 143 K/mcL (140-400); Red Blood Count 4.02 M/mcL (3.82-4.97); Red Cell Distribution Width 12.3 % (11.5-14.5); Segmented Neutrophils % 57.4 %
[2017-09-23 09:40] LABS: Prothrombin Time 10.9 Seconds (9.4-12.1)
[2017-09-23 10:01] LABS: Bilirubin,Urine Negative (Negative); Blood,Urine Negative (Negative); Clarity,Urine Clear (Clear); Color,Urine Yellow (Yellow); Glucose,Urine (UA) Normal (Normal); Ketones,Urine 15 mg/dL (Negative); Leukocyte Esterase,Urine Negative (Negative); Nitrite,Urine Negative (Negative); PH,Urine 5.5 pH Units (5.0-8.0); Protein,Urine 100 mg/dL (Neg-Trace); Specific Gravity,Urine >= 1.030 (1.010-1.025); Urobilinogen,Urine Normal (Normal)
[2017-09-23 10:14] LABS: Mucus,Urine Moderate (Few); Squamous Epithelial Cell,Urine Moderate per lpf (None-Few)
[2017-09-23 10:20] LABS: Alanine Aminotransferase 19 Units/L (7-52); Albumin 3.7 g/dL (3.5-5.7); Albumin/Globulin Ratio 1.6 (1.1-2.2); Alkaline Phosphatase 77 Units/L (34-104); Aspartate Amino Transferase 21 Units/L (13-39); BUN/Creatinine Ratio 17 (6-26); Bilirubin,Total 0.3 mg/dL (0.3-1.0); Blood Urea Nitrogen 13 mg/dL (8-23); Calcium 8.7 mg/dL (8.6-10.3); Carbon Dioxide 31 mEq/L (23-29); Chloride 106 mEq/L (98-107); Globulin 2.3 g/dL (2.4-3.5); Glucose 107 mg/dL (70-105); Osmolality,Calculated 295 (280-300); Potassium 3.3 mEq/L (3.5-5.1); Sodium 142 mEq/L (136-145); eGFR For African Americans > 60 (> 60); eGFR For Non-African Americans > 60 (> 60)
[2017-09-23] MEDS ORDERED: Levofloxacin 500 MG/100 ML 500 MG/100 ML BAG IVPB ONE (10:36)
[2017-09-23] MEDS ORDERED: methylPREDNISolone 125 MG/2 ML VIAL IVP ONE (10:36)
[2017-09-23] MEDS ORDERED: 0.9 % Sodium Chloride 1,000 ML ONE (11:12)
[2017-09-23] MEDS ORDERED: 0.9 % Sodium Chloride 1,000 ML IVC SCH ×3 (11:30→17:04)
[2017-09-23] MEDS ORDERED: Naloxone 0.4 MG/ML INJ IVP PRN (17:04)
[2017-09-23] MEDS ORDERED: Fluticasone Propionate Nasal 50 MCG/SPRAY BOTTLE NS PRN (17:04)
[2017-09-23] MEDS ORDERED: ERGOCALCIFEROL 50000 UNIT PO SCH (17:04)
[2017-09-23] MEDS ORDERED: *HR* OxyCODONE/APAP 5/325 TABLET PO PRN (17:04)
[2017-09-23] MEDS ORDERED: Furosemide 40 MG TABLET PO PRN (17:04)
[2017-09-23] MEDS ORDERED: Albuterol 2.5 MG/3 ML NEBULIZER IH PRN (17:04)
[2017-09-23] MEDS: Ipratropium/Albuterol Neb 3 ML IH SCH ×2 (18:08→22:48)
[2017-09-23] MEDS: MethylPREDNISolone 40 MG/ML VIAL IVP SCH ×2 (18:42→18:45)
--- NOTE | 2017-09-23 19:55 | Internal Med History&Physical ---
Date of Encounter: 09/23/17 Time of Encounter: 19:25 Assessment and Plan (1) Acute exacerbation of chronic obstructive airways disease Current visit: Yes Status: Acute She was given Levaquin in emergency room with IV steroids. Will continue with Levaquin but hold further Solu-Medrol at this time. We will order scheduled Robitussin-DM. Reassess in a.m. (2) Hypokalemia Current visit: Yes Status: Acute We will give supplemental potassium and recheck labs in a.m. Internal Medicine - H&P: HPI Chief complaint: Cough and dyspnea Admitted From: Emergency Dept Plans for Post Hospital Care: Home History of present illness: Ms. Barbosa is a 71 year old female who came to emergency room stating she had onset of cough on awakening September 19. She reports she had been prescribed BiPAP the previous day by her pencil sorter as a transition from CPAP. Her cough seemed to worsen over the next few days and she developed worsening headache. She denies vomiting or diarrhea but did have some nausea. She decided to come to emergency room and was evaluated and felt to have exacerbation of COPD. She was admitted to [facility] floor for ongoing care needs. Her respiratory history is significant for having smoked from age [age] total of 20 years. She smoked up to one pack per day. She has diagnoses of COPD and wears oxygen 24/7 at 2 L/m at home. She has a diagnosis of CHAUNCEY and was transitioned from CPAP to BiPAP as per above. Past Med Surg Social Fam HX - Past Medical History Medical history: arthritis, asthma, COPD, coronary artery disease, diabetes, GERD, hyperlipidemia, hypertension, myocardial infarction, peripheral artery disease Psychiatric history: depression - Past Surgical History Surgical History: angioplasty/stent, appendectomy, breast surgery, hysterectomy , CHALINO/BSO - Social History Smoking Status: Former smoker Smokeless Tobacco Status: No Alcohol use: none Drug use: none Internal Medicine - H&P: Meds Albuterol Sulfate [Albuterol Inhaler] 2 puff IH Q4HR PRN 06/22/15 [History] Ascorbate Calcium [Vitamin C] 500 mg PO DAILY 06/22/15 [History] Beclomethasone Diprop 80mcg [QVAR 80 mcg] 80 mcg PO BID PRN 06/22/15 [History] Cyclosporine [Restasis] 1 each OP HS 06/22/15 [History] Ergocalciferol (VITAMIN D2) [Vitamin D2 (50,000 UNIT)] 50,000 unit PO WE [History] Fluticasone Propionate Nasal [Flonase] 1 spr NS DAILY PRN 06/22/15 [History] Furosemide [Lasix] 40 mg PO DAILY PRN 06/22/15 [History] Montelukast [Singulair] 10 mg PO HS 06/22/15 [History] Multivitamin [Multi-Day Vitamins] 1 each PO DAILY 06/22/15 [History] [place]-3S/Dha/Epa/Fish Oil [Fish Oil 1,200 mg Softgel] 1,000 mg PO DAILY [History] Oxygen 2 l NS AD 06/22/15 [History] Simvastatin [Zocor] 20 mg PO HS 06/22/15 [History] Vitamin E Acid Succinate [Vitamin E] 400 unit PO DAILY 06/22/15 [History] hydroCHLOROthiazide [Hydrochlorothiazide] 12.5 mg PO DAILY 06/22/15 [History] rOPINIRole [Requip] 1 mg PO HS 06/22/15 [History] Aspirin 81 mg PO DAILY 01/18/16 [History] Duloxetine HCl [Cymbalta] 60 mg PO DAILY 01/18/16 [History] Glimepiride [Amaryl] 2 mg PO 0800 01/18/16 [History] Pregabalin [Lyrica] 75 mg PO BID 01/18/16 [History] Tiotropium [place] [Spiriva Respimat] 2 puff IH BID 01/18/16 [History] Omeprazole [PriLOSEC] 40 mg PO DAILY 06/14/16 [History] Potassium Chloride [Klor-Con 10] 10 meq PO DAILY 06/14/16 [History] Metoprolol [Lopressor] 25 mg PO BID 02/09/17 [History] DULoxetine [Cymbalta] 30 mg PO DAILY 04/17/17 [History] Losartan [Cozaar] 25 mg PO DAILY 04/17/17 [History] Oxycodone HCl/Acetaminophen [Percocet 5-325 mg Tablet] 1 each PO Q6HR PRN #12 tablet 04/17/17 [Rx] 3 Allergy/AdvReac Type Severity Reaction Status Date / Time gabapentin [From Neurontin] Allergy SWELLING Verified 04/17/17 12:00 naproxen [From Naprosyn] Allergy Hives Verified 04/17/17 12:00 NSAIDS (Non-Steroidal Allergy Hives Verified 04/17/17 12:00 Anti-Inflamma All Systems PM: A 10-system review of systems was performed and is negative for pertinent findings except as documented above in the HPI. Review of systems: Review of systems from her June 2016 [facility] hospitalization were reviewed and revised as below. Gen.: Her weight has minimally changed from 96.088 kg on 06/14/2016 to present weight of 97.976 kg. Cardiovascular: She has history of hypertension. 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 She has ASPVD with right leg stent placed several years ago. She denies heart failure DVT or pulmonary embolus. She has not had prolonged period of immobility. Respiratory: As per history of present illness GI: She has GERD but denies disorders of her liver gallbladder or exocrine pancreas : She has had UTIs in the past. She denies other kidney or bladder disorders Neurologic: She has DPN and RLS. She denies large distribution strokes or seizures. Endocrine: She was diagnosed with DM 2 in 2016. She has hyperlipidemia but no known thyroid disease Hematology/oncology: She denies blood disorders cancers or anemia Psychiatric: She has depression but denies anxiety or other mental health issues [place] skeletal: She has chronic low back pain and has a stimulator in place. 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 She denies gout or other bone joint or muscle disorders. - Constitutional Vitals: Temp Pulse Resp BP Pulse Ox 98.0 F 75 18 131/58 90 09/23/17 18:33 09/23/17 18:33 09/23/17 18:33 09/23/17 18:33 09/23/17 18:33 Exam: Gen.: She is a well-developed well-nourished female resting comfortably in bed who appears in no acute distress HEENT: Head is atraumatic and normocephalic. Eyes: EOMI. There is no scleral icterus. Mouth: Mucosa is moist. Neck: Supple and nontender. There is no thyromegaly or adenopathy noted. Heart: Regular without murmurs gallops or ectopics lungs: No wheezes or crackles are heard. Abdomen: Soft and nontender. No masses or guarding are noted. Extremities: There is no cyanosis edema or clubbing noted. Dorsalis pedis and posttibial pulses are trace to 1+ palpable bilaterally. Neurologic: Mental status: She is talkative and a good historian. Cranial nerves: Smile is symmetric. Forehead wrinkles bilaterally. Tongue protrudes midline. EOMI. Motor: There is no pronator drift. Cerebellar: Finger to nose is intact bilaterally. Skin: Warm and dry Internal Med - H&P Results - Labs CBC & Chem 7: 09/23/17 09:20 09/23/17 09:20
[2017-09-23] MEDS: 0.45 % Sodium Chloride w/KCl 20 MEQ/1,000 ML MLS IVC SCH (20:09)
[2017-09-23] MEDS: Pregabalin 75 MG CAPSULE PO SCH (20:09)
[2017-09-23] MEDS ORDERED: (Cyclosporine [Restasis] 1 EACH) OP SCH (21:00)
[2017-09-23] MEDS ORDERED: rOPINIRole 1 MG TABLET PO SCH (21:00)
[2017-09-24] MEDS: Ipratropium/Albuterol Neb 3 ML IH SCH ×2 (04:52→10:12)
[2017-09-24] MEDS: 0.45 % Sodium Chloride w/KCl 20 MEQ/1,000 ML MLS IVC SCH (05:56)
[2017-09-24] MEDS ORDERED: Ascorbic Acid 500 MG TABLET PO SCH (06:30)
[2017-09-24 06:36] VITALS: BP 194/68
[2017-09-24 06:51] LABS: Basophils % 0.2 %; Hematocrit 40.1 % (35.3-44.9); Hemoglobin 12.9 g/dL (11.5-15.4); Immature Granulocytes % 0.4 % (0-4); Lymphocytes # 1.1 K/mcL (0.6-4.6); Lymphocytes % 19.4 %; Mean Corpuscular HGB Conc 32.2 g/dL (31.6-35.5); Mean Corpuscular Hemoglobin 31.7 pg (28.0-33.3); Mean Corpuscular Volume 98.5 fL (83.0-100.0); Mean Platelet Volume 10.3 fL (9.4-12.4); Monocytes # 0.4 K/mcL (0.0-1.3); Monocytes % 6.8 %; Platelet Count 149 K/mcL (140-400); Red Blood Count 4.07 M/mcL (3.82-4.97); Red Cell Distribution Width 12.4 % (11.5-14.5); Segmented Neutrophils % 73.2 %
[2017-09-24 07:10] LABS: BUN/Creatinine Ratio 14 (6-26); Blood Urea Nitrogen 10 mg/dL (8-23); Calcium 8.6 mg/dL (8.6-10.3); Carbon Dioxide 29 mEq/L (23-29); Chloride 106 mEq/L (98-107); Glucose 263 mg/dL (70-105); Osmolality,Calculated 302 (280-300); Sodium 142 mEq/L (136-145); eGFR For African Americans > 60 (> 60); eGFR For Non-African Americans > 60 (> 60)
[2017-09-24] MEDS ORDERED: *HR* Glimepiride 2 MG TABLET PO SCH (08:00)
[2017-09-24] MEDS: Pregabalin 75 MG CAPSULE PO SCH (08:43)
[2017-09-24] MEDS ORDERED: Multivit/Ca/Min/Fe/FA 1 TAB TABLET PO SCH (09:00)
[2017-09-24] MEDS ORDERED: EPA PO SCH (09:00)
[2017-09-24] MEDS ORDERED: Aspirin 81 MG TAB.CHEW PO SCH (09:00)
[2017-09-24] MEDS ORDERED: Levofloxacin 500 MG/100 ML 500 MG/100 ML BAG IVPB SCH (09:00)
[2017-09-24] MEDS ORDERED: FISH OIL PO SCH (09:00)
[2017-09-24] MEDS ORDERED: DHA PO SCH (09:00)
[2017-09-24] MEDS ORDERED: OMEGA PO SCH (09:00)
[2017-09-24] MEDS ORDERED: hydroCHLOROthiazide 25 MG TABLET PO SCH (09:00)
[2017-09-24] MEDS ORDERED: Tiotropium 18 MCG inhalation IH SCH (10:00)
--- NOTE | 2017-09-24 10:24 | Discharge Summary ---
Date of Encounter: 09/24/17 Time of Encounter: 10:15 - Discharge Diagnosis (1) Acute exacerbation of chronic obstructive airways disease Priority: Primary Status: Acute (2) Hypokalemia Priority: Secondary Status: Resolved Hospital course: Ms. Barbosa is a 71 year old female who came to emergency room stating she had onset of cough on awakening September 19. She reports she had been prescribed BiPAP the previous day by her police academy instructor as a transition from CPAP. Her cough seemed to worsen over the next few days and she developed worsening headache. She denies vomiting or diarrhea but did have some nausea. She decided to come to emergency room and was evaluated and felt to have exacerbation of COPD. She was admitted to [facility] for ongoing care needs. Initial orders were written by the emergency room physician. I saw her on September 23 and performed a history and physical. She was given IV Levaquin and started on Solu-Medrol in emergency room. Robitussin-DM was given. When I saw her on September 24 she felt improved and back to her baseline. She remained afebrile. The WBC remained normal with no left shift seen on differential. I did not think she required additional antibiotics. Additional potassium was given and hypokalemia resolved. She will continue higher dose potassium supplement at discharge. She will be discharged home and follow with her PCP Carrie Cole within 1 week. - Time Spent with Patient Total time spent providing and/or coordinating discharge services: - Discharge Medications Prescriptions: Potassium Chloride 10 meq PO BID #60 [email or web address] Home Medications: Albuterol Sulfate [Albuterol Inhaler] 2 puff IH Q4HR PRN 06/22/15 [History] Ascorbate Calcium [Vitamin C] 500 mg PO DAILY 06/22/15 [History] Beclomethasone Diprop 80mcg [QVAR 80 mcg] 80 mcg PO BID PRN 06/22/15 [History] Cyclosporine [Restasis] 1 each OP HS 06/22/15 [History] Ergocalciferol (VITAMIN D2) [Vitamin D2 (50,000 UNIT)] 50,000 unit PO WE [History] Fluticasone Propionate Nasal [Flonase] 1 spr NS DAILY PRN 06/22/15 [History] Furosemide [Lasix] 40 mg PO DAILY PRN 06/22/15 [History] Montelukast [Singulair] 10 mg PO HS 06/22/15 [History] Multivitamin [Multi-Day Vitamins] 1 each PO DAILY 06/22/15 [History] [place]-3S/Dha/Epa/Fish Oil [Fish Oil 1,200 mg Softgel] 1,000 mg PO DAILY [History] Oxygen 2 l NS AD 06/22/15 [History] Simvastatin [Zocor] 20 mg PO HS 06/22/15 [History] Vitamin E Acid Succinate [Vitamin E] 400 unit PO DAILY 06/22/15 [History] hydroCHLOROthiazide [Hydrochlorothiazide] 12.5 mg PO DAILY 06/22/15 [History] rOPINIRole [Requip] 1 mg PO HS 06/22/15 [History] Aspirin 81 mg PO DAILY 01/18/16 [History] Duloxetine HCl [Cymbalta] 60 mg PO DAILY 01/18/16 [History] Glimepiride [Amaryl] 2 mg PO 0800 01/18/16 [History] Pregabalin [Lyrica] 75 mg PO BID 01/18/16 [History] Tiotropium [place] [Spiriva Respimat] 2 puff IH BID 01/18/16 [History] Omeprazole [PriLOSEC] 40 mg PO DAILY 06/14/16 [History] Metoprolol [Lopressor] 25 mg PO BID 02/09/17 [History] DULoxetine [Cymbalta] 30 mg PO DAILY 04/17/17 [History] Losartan [Cozaar] 25 mg PO DAILY 04/17/17 [History] Oxycodone HCl/Acetaminophen [Percocet 5-325 mg Tablet] 1 each PO Q6HR PRN #12 tablet 04/17/17 [Rx] Potassium Chloride 10 meq PO BID #60 [email or web address] 09/24/17 [Rx] Allergies/Adverse Reactions: 3 Allergy/AdvReac Type Severity Reaction Status Date / Time gabapentin [From Neurontin] Allergy SWELLING Verified 04/17/17 12:00 naproxen [From Naprosyn] Allergy Hives Verified 04/17/17 12:00 NSAIDS (Non-Steroidal Allergy Hives Verified 04/17/17 12:00 Anti-Inflamma Date of admission: 09/23/17 16:54 Primary care physician: Carrie Cole CNP - Constitutional Vitals: Temp Pulse Resp BP Pulse Ox 98.5 F 77 24 194/68 93 09/24/17 06:33 09/24/17 06:33 09/24/17 06:33 09/24/17 06:33 09/24/17 06:33 - Patient Status Disposition: Home, Self-Care Condition: Good - Discharge Instructions Follow Up With: Carrie Cole CNP [Primary Care Provider] - 1 week - Diet and Activity Activity: resume usual activities as tolerated, wear oxygen at all times Diet: advance to your usual diet
--- NOTE | 2017-09-25 09:52 | Physician Discharge Referral ---
Home Health/Hosp Referral Info Transfer to: Home Health Attending Provider: Avelino Provider in Charge Post Discharge: PCP ([facility]) - Diagnosis (1) Acute exacerbation of chronic obstructive airways disease Priority: Primary Status: Acute (2) Hypokalemia Priority: Secondary Status: Resolved - Respiratory Orders Oxygen / L per min (2 L/m by nasal cannula 22/12. Continue BiPAP as previously prescribed.) Smoking Cessation: Smoking cessation has been advised. For more information, call the [place] Tobacco Quit Line at 3-623-FGNE-NOW. - Activity Activity Orders: Ambulate - Services Needed Following services are medically necessary services: Nursing, Home Health Aide, Physical Therapy, Occupational Therapy - Transfer Medications Prescriptions: Potassium Chloride 10 meq PO BID #60 tab.er.prt Home Medications: Albuterol Sulfate [Albuterol Inhaler] 2 puff IH Q4HR PRN 06/22/15 [History] Ascorbate Calcium [Vitamin C] 500 mg PO DAILY 06/22/15 [History] Beclomethasone Diprop 80mcg [QVAR 80 mcg] 80 mcg PO BID PRN 06/22/15 [History] Cyclosporine [Restasis] 1 each OP HS 06/22/15 [History] Ergocalciferol (VITAMIN D2) [Vitamin D2 (50,000 UNIT)] 50,000 unit PO WE [History] Fluticasone Propionate Nasal [Flonase] 1 spr NS DAILY PRN 06/22/15 [History] Furosemide [Lasix] 40 mg PO DAILY PRN 06/22/15 [History] Montelukast [Singulair] 10 mg PO HS 06/22/15 [History] Multivitamin [Multi-Day Vitamins] 1 each PO DAILY 06/22/15 [History] Dinuba-3S/Dha/Epa/Fish Oil [Fish Oil 1,200 mg Softgel] 1,000 mg PO DAILY [History] Oxygen 2 l NS AD 06/22/15 [History] Simvastatin [Zocor] 20 mg PO HS 06/22/15 [History] Vitamin E Acid Succinate [Vitamin E] 400 unit PO DAILY 06/22/15 [History] hydroCHLOROthiazide [Hydrochlorothiazide] 12.5 mg PO DAILY 06/22/15 [History] rOPINIRole [Requip] 1 mg PO HS 06/22/15 [History] Aspirin 81 mg PO DAILY 01/18/16 [History] Duloxetine HCl [Cymbalta] 60 mg PO DAILY 01/18/16 [History] Glimepiride [Amaryl] 2 mg PO 0800 01/18/16 [History] Pregabalin [Lyrica] 75 mg PO BID 01/18/16 [History] Tiotropium [place] [Spiriva Respimat] 2 puff IH BID 01/18/16 [History] Omeprazole [PriLOSEC] 40 mg PO DAILY 06/14/16 [History] Metoprolol [Lopressor] 25 mg PO BID 02/09/17 [History] DULoxetine [Cymbalta] 30 mg PO DAILY 04/17/17 [History] Losartan [Cozaar] 25 mg PO DAILY 04/17/17 [History] Oxycodone HCl/Acetaminophen [Percocet 5-325 mg Tablet] 1 each PO Q6HR PRN #12 tablet 04/17/17 [Rx] Potassium Chloride 10 meq PO BID #60 tab.er.prt 09/24/17 [Rx] Allergies/Adverse Reactions: 3 Allergy/AdvReac Type Severity Reaction Status Date / Time gabapentin [From Neurontin] Allergy SWELLING Verified 04/17/17 12:00 naproxen [From Naprosyn] Allergy Hives Verified 04/17/17 12:00 NSAIDS (Non-Steroidal Allergy Hives Verified 04/17/17 12:00 Anti-Inflamma Certification: Further, I certify that my clinical findings support that this patient is homebound (i.e. absences from home require considerable and taxing effort and are for medical reasons or [facility] services or infrequently or short duration when for other reasons) because: Homebound Reason: Leaving home requires considerable and taxing effort due to condition (Dyspnea on exertion) Attestation: My signature below is to certify that this patient is under my care and that I, or nurse practitioner, or a physician's junior sales assistant working with me, has a face-to -face encounter with this patient.
[2017-09-30] MEDS ORDERED: ERGOCALCIFEROL 50000 UNIT PO SCH (09:00)
== END 2017-09-24 11:13 | disposition home or self-care (01) ==
LOC: INPPIK 08:40 → EMEROOPIK 08:40 → INPPIK 16:58
PROVIDERS: ADMIT Internal Medicine; ATTEND Internal Medicine